=== PATIENT | female | born 2000 | race Two or more races ===

== ENCOUNTER 2025-04-21 08:36 | Emergency (ER) | payer OTHER ==
[~2025-04-21] VITALS: Ht 157.5 cm; Wt 81.4 kg
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
[2025-04-21 09:32] VITALS: BP 126/81; PULSE 91; RESP 17; TEMP 98.7; O2SAT 98
--- NOTE | 2025-04-21 09:47 | DVH ---
CLINICAL INDICATION: Pain TECHNIQUE: XY L TIB FIB XRAY, XY L FEMUR XRAY Comparison: None FINDINGS/IMPRESSION: : There is no evidence of acute fracture or dislocation. Soft tissues are unremarkable.
[2025-04-21] MEDS ORDERED: IBUP1TAB5 PO (10:11)
== END 2025-04-21 10:12 | disposition home or self-care (01) ==
LOC: ER 08:36
DX: M79.605 Pain in left leg (principal); V89.2XXA Person injured in unspecified motor-vehicle accident, traffic, initial encounter; Y93.89 Activity, other specified; Y92.410 Unspecified street and highway as the place of occurrence of the external cause; Y99.8 Other external cause status
CPT/HCPCS: 73590

== ENCOUNTER 2025-04-22 12:43 | Emergency (ER) | payer OTHER ==
[~2025-04-22] VITALS: Ht 157.5 cm; Wt 81.2 kg
[~2025-04-22 12:43] MED LIST: IBUP1TAB5 PO
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
[2025-04-22] MEDS: KETOROLAC TROMETH 60MG/2ML VIAL IM ONE (13:24)
[2025-04-22 13:25] VITALS: BP 115/74; PULSE 80; RESP 18; TEMP 98.1; O2SAT 100
== END 2025-04-22 13:37 | disposition home or self-care (01) ==
LOC: ER 12:43
DX: S70.02XA Contusion of left hip, initial encounter (principal); S80.12XA Contusion of left lower leg, initial encounter; V03.99XA Pedestrian with other conveyance injured in collision with car, pick-up truck or van, unspecified whether traffic or nontraffic accident, initial encounter; Y93.01 Activity, walking, marching and hiking; Y92.481 Parking lot as the place of occurrence of the external cause; Y99.8 Other external cause status
CPT/HCPCS: 96372; 99283; J1885